=== PATIENT | male | born 1965 | race Caucasian/White ===

== ENCOUNTER 2016-08-23 15:45 | Emergency (ER) | payer MEDICARE, OTHER ==
[2016-08-23 14:10] LABS: BASOPHILS 0.8 %; BASOPHILS ABSOLUTE 0.04 10/3/uL (0.0-0.16); EOSINOPHILS 1.7 %; EOSINOPHILS ABSOLUTE 0.08 10/3/uL (0.0-0.53); ER CBC TAT 0 Hrs 08 Mins; HEMATOCRIT 40.5 % (40.0-51.0); HEMOGLOBIN 13.9 g/dL (13.6-17.8); IMMATURE GRANULOCYTES 0.4 %; IMMATURE GRANULOCYTES ABSOLUTE 0.02 10/3/uL (0.0-0.11); LYMPHOCYTES 13.7 %; LYMPHOCYTES ABSOLUTE 0.66 10/3/uL (0.67-4.30); MEAN CORPUS HGB CONC 34.3 g/dL (32.0-36.0); MEAN CORPUSCULAR HEMOGLOB 29.1 pg (26.0-34.0); MEAN CORPUSCULAR VOLUME 84.9 fL (80-100); MEAN PLATELET VOLUME 11.1 fL (9.2-13.0); MONOCYTES 11.4 %; MONOCYTES ABSOLUTE 0.55 10/3/uL (0.21-1.20); NEUTROPHILS ABSOLUTE 3.47 10/3/uL (2.02-8.40); PLATELET COUNT 94 10/3/uL (150-400); RBC DISTRIBUTION WIDTH 13.5 % (12.0-16.0); RED CELL COUNT 4.77 10/6/uL (4.7-6.1); WHITE BLOOD CELLS 4.8 10/3/uL (4.5-10.5)
[2016-08-23 14:11] LABS: MANUAL DIFF NO %
[2016-08-23 14:28] LABS: A/G RATIO 0.7 (0.7-1.9); ALBUMIN 3.6 G/DL (3.5-5.0); ALKALINE PHOSPHATASE 96 U/L (45-117); CHLORIDE, SERUM 96 MMOL/L (96-112); CO2 (CARBON DIOXIDE) 35 MMOL/L (24-34); GFR AFRICAN AMERICAN 58 ML/MIN (>=60); GFR NON AFRICAN AMERICAN 50 ML/MIN (>=60); GLOBULIN 4.9 G/DL (2.5-4.1); GLUCOSE, SERUM 171 MG/DL (60-99); SGOT(AST) 48 U/L (5-40); SGPT(ALT) 51 U/L (5-65); SODIUM, SERUM 135 MMOL/L (135-148); TOTAL BILIRUBIN 0.9 MG/DL (0-1.2); TOTAL PROTEIN 8.5 G/DL (6.0-8.5)
[2016-08-23 14:29] LABS: BUN (BLOOD UREA NITROGEN) 23 MG/DL (6-23); CALCIUM, SERUM 10.4 MG/DL (8.5-10.4)
[2016-08-23 15:05] LABS: TROPONIN I <0.02 NG/ML (<0.05)
[~2016-08-23 15:45] MED LIST: AMARYL1 MG PO; AMARYL2 PO; ANUSOL-HC25 MG PR; ASA5GR PO; ASAB PO; ASABAYER PO; ASCRIPTIN PO; AUG500 PO; B COMPLETE PO; BIST PO; BUM2 PO; CEFADROXIL1 GM PO; CENTRUM TAB1 TAB PO; CHLORASEPTIC1.4 % MT; CLARIT10 PO; CONSTULOSE PO; COREG3 PO; COREG6 PO; DIL2TAB PO; DORYX150 MG PO; DSS PO; DURICEF PO; FISH OIL1200 MG PO; FISH-EPA1000 MG PO; GARLIC PO; GLUCOPHXR PO; GLUCPH PO; HALF81 PO; IBU800 PO; IND25 PO; INDO50 PO; K500 PO; L40 PO; LEVEMFLXPN SC; LEVEMIR SC; MAGNESIUM 250MG OTC PO; MAGNESIUM OTC PO; MAGOX4 PO; MILK THISTLE PO; MIRALAXPKT PO; MONODOX100 MG PO; MULTIVIT/MIN PO; MULTIVITAMI1 PO; NATURA2 OP; NATURA2 OPH; NOVOLOG SC; OMNICEF300 PO; OTC MAGNESIUM PO; OXYCOD PO; P20 PO; POTASSIUM; POTASSIUM 595 MG PO; POTASSIUM 99 PO; POTASSIUM 99MG OTC PO; POTASSIUM OTC PO; POTASSIUM PO; PRILOSEC40 MG PO; PRIN10 PO; PRIN20 PO; PROAMAT5 PO; REFRESH OP; REFRESH1 % OP; REG5 PO; SPIRO25 PO; SPIRO50 PO; SURBEX-T1 TAB PO; SURBEX/C1 TAB PO; TEARS NATURA OPH; TEARS PLUS OPH; TRESIBA FL100 UNIT/1 SC; TRULICITY1.5 MG/0.5 SQ; TUCKS EX; TUMS E-X750 M2 PO; TUMSROLL PO; TUSSIN DM1 M1 PO; ULORIC40 MG PO; ULTRAM50 PO; UROCIT-K 10; VIT B COMPLEX PO; VITAMIN B PO; VITAMIN D1000 UNI1 PO; VITAMIN D31000 UNIT PO; VITE PO; X25 PO; X5 PO; Z100 PO; ZANTAC 150 PO; ZOFRAN ODT4 MG PO; ZOFRAN4 PO; ZOFRANODT8 PO; ZOL50 PO; ZOLOFT25 MG PO; ZYRTEC ALLGY10 MG PO; [UNRECOGNIZED DRUG - OTHER] PO; [UNRECOGNIZED DRUG - OTHER] PO
[2016-08-23 16:03] LABS: ASCORBIC ACID (UR NOT ORDER) NEG (NEG); BILIRUBIN, URINE NEGATIVE (NEG); ER URINALYSIS TAT 0 Hrs 20 Mins; KETONE, URINE NEGATIVE (NEG); LEUKOCYTE ESTERASE(NOT OR NEG (NEG); NITRITE (URINE) NEG (NEG); WBC (NOT ORDERED) (RFLEX) 1 (0-5)
== END 2016-08-23 20:11 | disposition home or self-care (01) ==
LOC: ER 15:45
PROVIDERS: Emergency Medicine
DX: E11.65 Type 2 diabetes mellitus with hyperglycemia (principal); R51 Headache; I25.2 Old myocardial infarction; Z95.5 Presence of coronary angioplasty implant and graft; N18.9 Chronic kidney disease, unspecified; Z88.8 Allergy status to other drugs, medicaments and biological substances; Z79.899 Other long term (current) drug therapy; Z79.4 Long term (current) use of insulin
CPT/HCPCS: 70450; 71010; 80053; 81001; 82962; 83690; 84484; 85025; 93005; 96374; 99285; J1200; J2765